=== PATIENT | male | born 1985 | race Caucasian/White ===

== ENCOUNTER 2020-07-15 13:25 | Emergency (ER) | payer OTHER ==
[~2020-07-15] VITALS: Ht 182.9 cm; Wt 84.0 kg
[2020-07-15 13:37] VITALS: BP 127/82
== END 2020-07-15 15:20 | disposition home or self-care (01) ==
LOC: ER 13:25
DX: R06.00 Dyspnea, unspecified (principal); F43.20 Adjustment disorder, unspecified; I49.9 Cardiac arrhythmia, unspecified
CPT/HCPCS: 93005; 99283